=== PATIENT | female | born 1955 | race Caucasian/White ===

== ENCOUNTER → 2016-10-13 | Outpatient (CLI) | payer OTHER | LOC: FIMAGING 14:25 | PROVIDERS: ATTEND Surgery | DX: N60.42 Mammary duct ectasia of left breast (principal); N64.52 Nipple discharge | CPT/HCPCS: G0204 ==

== ENCOUNTER 2017-03-17 22:20 | Emergency (ER) | payer BC, OTHER ==
[2017-03-17 22:25] VITALS: TEMP 97.5
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
[2017-03-17] MEDS ORDERED: traMADol 50 MG TAB ONE (22:55)
[2017-03-17] MEDS ORDERED: traMADol 50 MG TAB PO ONE ×2 (22:56→23:37)
[2017-03-17] MEDS ORDERED: LET GEL TOPICAL 1 EA SYR TP ONE ×2 (23:16→23:20)
[2017-03-18 00:08] VITALS: BP 106/65; PULSE 73; RESP 20; O2SAT 94
== END 2017-03-18 00:08 | disposition home or self-care (01) ==
DX: S52.021A Displaced fracture of olecranon process without intraarticular extension of right ulna, initial encounter for closed fracture (principal); V18.0XXA Pedal cycle driver injured in noncollision transport accident in nontraffic accident, initial encounter; Y92.009 Unspecified place in unspecified non-institutional (private) residence as the place of occurrence of the external cause; Y99.8 Other external cause status; Y93.55 Activity, bike riding

== ENCOUNTER → 2017-08-16 | Outpatient (CLI) | payer BC | LOC: FIMAGING 10:30 | PROVIDERS: ATTEND Internal Medicine | DX: Z13.820 Encounter for screening for osteoporosis (principal); M85.80 Other specified disorders of bone density and structure, unspecified site; Z78.0 Asymptomatic menopausal state; Z87.81 Personal history of (healed) traumatic fracture ==

== ENCOUNTER → 2018-02-22 | Outpatient (CLI) | payer BC | LOC: BMCIMAGING 08:00 | PROVIDERS: ATTEND Surgery | DX: Z12.31 Encounter for screening mammogram for malignant neoplasm of breast (principal) ==